=== PATIENT | male | born 1975 | race Two or more races ===

== ENCOUNTER 2019-01-02 19:57 | Emergency (ER) | payer BC, OTHER ==
[~2019-01-02] VITALS: Ht 185.4 cm; Wt 121.4 kg
[~2019-01-02 19:57] MED LIST: HYDR-3245 PO
[2019-01-02 20:00] VITALS: BP 141/83
[2019-01-02] MEDS ORDERED: KETOROLAC 30 MG/1 ML ONE (21:48)
[2019-01-02] MEDS ORDERED: KETOROLAC 30 MG/1 ML IM ONE (22:00)
== END 2019-01-02 22:30 | disposition home or self-care (01) ==
LOC: ED 22:05
DX: M25.512 Pain in left shoulder (principal); R51 Headache; G89.29 Other chronic pain
CPT/HCPCS: 73030; 96372; 99283; J1885